=== PATIENT | male | born 1975 | race Caucasian/White ===

== ENCOUNTER 2023-07-29 18:46 | Inpatient (IN) | payer MEDICARE, OTHER ==
[2023-07-29] MEDS ORDERED: ONDANSETRON HCL/PF 4 MG/2 ML VIAL IVP PRN (22:30)
[2023-07-29] MEDS ORDERED: HYDROCODONE/APAP 5/325MG TABLET PO PRN (23:00)
[2023-07-29] MEDS: DOCUSATE SODIUM 100 MG CAPSULE PO SCH (23:00)
[2023-07-29] MEDS ORDERED: MORPHINE SULFATE INJ 2 MG/ML DISP.SYRIN IV PRN (23:00)
[2023-07-29 23:35] LABS: BASOPHILS # (AUTO) 0.1 K/uL (0.0-0.2); EOSINOPHILS # (AUTO) 0.3 K/uL (0.0-0.7); EOSINOPHILS % (AUTO) 3.8 % (0.0-6.0); HEMATOCRIT 44 % (39-51); HEMOGLOBIN 14.8 g/dL (13.5-17.5); LYMPHOCYTES # (AUTO) 2.5 K/uL (0.8-4.8); LYMPHOCYTES % (AUTO) 33.6 % (20.0-44.0); MEAN CORPUSCULAR HEMOGLOBIN 30 PG (26.0-33.0); MEAN CORPUSCULAR HGB CONC 34 g/dl (31.0-36.0); MEAN CORPUSCULAR VOLUME 88 fL (80-96); MONOCYTES # (AUTO) 0.6 K/uL (0.1-1.30); MONOCYTES % (AUTO) 8.3 % (2.0-12.0); NEUTROPHILS # (AUTO) 3.9 K/uL (1.8-8.9); NEUTROPHILS % (AUTO) 53.3 % (43.0-81.0); PLATELET COUNT (AUTO) 277 K/uL (150-450); RED BLOOD CELL COUNT(AUTO) 4.98 MIL/uL (4.5-6.0); RED CELL DISTRIBUTION WIDTH 14.1 % (11.5-15.0); WHITE BLOOD COUNT (AUTO) 7.4 K/uL (4.3-11.0)
[2023-07-30 00:01] LABS: MAGNESIUM 2.1 mg/dL (1.8-2.4); PHOSPHORUS 3.3 mg/dL (2.5-4.9)
[2023-07-30 02:25] LABS: BILIRUBIN,URINE NEGATIVE (NEGATIVE); BLOOD, URINE NEGATIVE Ery/uL (NEGATIVE); COLOR,URINE YELLOW (YELLOW); KETONES,URINE NEGATIVE (NEGATIVE); LEUKOCYTE ESTERASE ,URINE 2+ (NEGATIVE); NITRITE, URINE POSITIVE (NEGATIVE); PH,URINE 6.5 (5.0-8.0); PROTEIN,URINE NEGATIVE (NEGATIVE); UGLUCOSE NEGATIVE (NEGATIVE)
[2023-07-30 02:36] LABS: APPEARANCE,URINE SLIGHTLY CLOUDY (CLEAR)
[2023-07-30 02:49] LABS: ADD URINE CULTURE YES; BACTERIA,URINE Many /HPF (None Seen); SQUAMOUS EPITHELIAL CELL,UR Rare /HPF (None Seen); WBC,URINE 81-100 /HPF (0-3)
[2023-07-30 04:00] VITALS: BP 121/66; TEMP 97.1; O2SAT 98
[2023-07-30] MEDS: CIPROFLOXACIN HCL 500 MG TABLET PO ONE (06:57)
[2023-07-30] MEDS: ACETAMINOPHEN 325 MG TABLET PO PRN (07:00)
[2023-07-30 09:05] LABS: CALCIUM, SERUM 9.1 mg/dL (8.5-10.1); CREATININE 0.9 mg/dL (0.6-1.3); POTASSIUM 3.9 mmol/L (3.5-5.1)
[2023-07-30 12:00] VITALS: BP 121/66; TEMP 97.1; O2SAT 98
[2023-07-30 20:00] VITALS: BP 94/68; TEMP 97.7; O2SAT 98
[2023-07-30] MEDS: CIPROFLOXACIN HCL 500 MG TABLET PO SCH (20:37)
[2023-07-31 04:00] VITALS: BP 95/62; TEMP 97.8; O2SAT 96
[2023-07-31 12:00] VITALS: BP 91/52; TEMP 97.5; O2SAT 99
[2023-07-31 20:00] VITALS: BP 104/59; TEMP 97.9; O2SAT 99
[2023-08-01 04:00] VITALS: BP 105/71; TEMP 98.2; O2SAT 95
[2023-08-01 08:00] VITALS: BP 117/66; TEMP 97.7; O2SAT 95
[2023-08-01 12:00] VITALS: BP 107/63; TEMP 97.4; O2SAT 100
[2023-08-01 16:00] VITALS: BP_SYST 100; BP_SYST 142; BP_DIAS 60; BP_DIAS 87; TEMP 97.5; TEMP 97.7; O2SAT 96; O2SAT 98
[2023-08-01 20:00] VITALS: BP 94/61; TEMP 98.2; O2SAT 99
[2023-08-02 04:00] VITALS: BP 128/74; TEMP 98.3; O2SAT 97
[2023-08-02 08:00] VITALS: BP 106/69; TEMP 97.7; O2SAT 97
[2023-08-02 14:04] LABS: CREATININE 0.9 mg/dL (0.6-1.3); MAGNESIUM 2.1 mg/dL (1.8-2.4); POTASSIUM 4.4 mmol/L (3.5-5.1)
[2023-08-02 16:55] VITALS: BP 124/88; TEMP 97.7; O2SAT 99
[2023-08-02 20:00] VITALS: BP 119/84; TEMP 97.3; O2SAT 99
[2023-08-03 04:00] VITALS: BP 110/73; TEMP 98; O2SAT 99
[2023-08-03 08:00] VITALS: BP 109/61; TEMP 98.4; O2SAT 99
[2023-08-03 16:00] VITALS: BP 104/55; TEMP 97.7; O2SAT 99
[2023-08-03 20:00] VITALS: BP 110/68; TEMP 97.9; O2SAT 99
[2023-08-04 04:00] VITALS: BP 108/83; TEMP 108; O2SAT 99
[2023-08-04 10:13] VITALS: BP 118/55; TEMP 97.7; O2SAT 99
[2023-08-04] MEDS ORDERED: ONDANSETRON HCL 4 MG/5 ML SOLUTION PO PRN ×2 (11:00)
[2023-08-04] MEDS: ONDANSETRON HCL 4 MG/5 ML SOLUTION PO PRN (11:25)
[2023-08-04] MEDS ORDERED: OMEG10006 PO (14:57)
[2023-08-04 16:40] VITALS: BP 110/68; TEMP 97.9; O2SAT 99
== END 2023-08-04 18:36 | DRG 563 ==
LOC: MEDSG1 20:50
PROVIDERS: ADMIT Nurse Practitioner Acute Care; ATTEND Nurse Practitioner Family
DX: S43.002A Unspecified subluxation of left shoulder joint, initial encounter (principal); N39.0 Urinary tract infection, site not specified; G82.20 Paraplegia, unspecified; D68.59 Other primary thrombophilia; S46.922A Laceration of unspecified muscle, fascia and tendon at shoulder and upper arm level, left arm, initial encounter; X58.XXXA Exposure to other specified factors, initial encounter; Y92.9 Unspecified place or not applicable; S46.211A Strain of muscle, fascia and tendon of other parts of biceps, right arm, initial encounter; N31.9 Neuromuscular dysfunction of bladder, unspecified; Z99.3 Dependence on wheelchair; Z74.09 Other reduced mobility; B96.89 Other specified bacterial agents as the cause of diseases classified elsewhere
CPT/HCPCS: 36415; 80048-TC; 80061-TC; 81001; 83735-TC; 84100-TC; 85025-TC; 87081-TC; 87086-TC; 97110-TC; 97112-TC; 97530-TC; G0378; Q0162